=== PATIENT | female | born 1960 ===

== ENCOUNTER 2017-08-22 08:15 | Inpatient (IN) | payer OTHER ==
[~2017-08-22] VITALS: Ht 167.6 cm; Wt 99.8 kg
[2017-08-22] MEDS ORDERED: NORVASC5 MG PO (11:45)
[2017-08-22] MEDS ORDERED: LOSARTAN POTASS50 MG PO (11:45)
[2017-08-22] MEDS ORDERED: DETROL LA4 MG PO (11:46)
[2017-08-22] MEDS ORDERED: DEXILANT30 MG PO (11:46)
== END 2017-08-31 09:27 | disposition home or self-care (01) | DRG 748 ==
LOC: O/R 08-30 05:55 → SURG 08-30 15:37
PROVIDERS: Colon & Rectal Surgery
PROC: 0JQC0ZZ Repair Pelvic Region Subcutaneous Tissue and Fascia, Open Approach (ICD-10-PCS; principal; 2017-08-30 07:00)
PROC: 06BY0ZC Excision of Hemorrhoidal Plexus, Open Approach (ICD-10-PCS; 2017-08-30 07:00)
DX: N81.6 Rectocele (principal); K64.1 Second degree hemorrhoids; G47.33 Obstructive sleep apnea (adult) (pediatric); I11.9 Hypertensive heart disease without heart failure; R73.01 Impaired fasting glucose